=== PATIENT | male | born 2000 | race Caucasian/White ===

== ENCOUNTER 2021-12-31 11:41 | Emergency (ER) | payer MEDICAID, OTHER ==
[~2021-12-31] VITALS: Ht 175.3 cm; Wt 81.6 kg
[2021-12-31 11:42] VITALS: BP 140/77
== END 2021-12-31 13:03 | disposition left against medical advice (07) ==
LOC: M ED 11:41
DX: Z53.21 Procedure and treatment not carried out due to patient leaving prior to being seen by health care provider (principal)

== ENCOUNTER 2023-01-18 05:51 | Emergency (ER) | payer OTHER ==
[~2023-01-18] VITALS: Ht 177.8 cm; Wt 90.7 kg
[2023-01-18] MEDS ORDERED: ONDANSETRON 4MG ORAL DISINTEGRATING TAB PO ONE (06:50)
[2023-01-18] MEDS ORDERED: ONDA4TAB6 PO (06:50)
[2023-01-18 06:55] VITALS: BP 141/73
== END 2023-01-18 06:57 | disposition home or self-care (01) ==
LOC: M ED 05:51
DX: R11.2 Nausea with vomiting, unspecified (principal); Z20.9 Contact with and (suspected) exposure to unspecified communicable disease; Z87.891 Personal history of nicotine dependence

== ENCOUNTER 2023-05-26 17:12 | Emergency (ER) | payer OTHER ==
[~2023-05-26] VITALS: Ht 180.3 cm; Wt 104.5 kg
[~2023-05-26 17:12] MED LIST: ONDA4TAB6 PO
[2023-05-26] MEDS ORDERED: IBUP-1022 PO (19:44)
[2023-05-26] MEDS ORDERED: METH-1164 PO (19:44)
[2023-05-26] MEDS ORDERED: IBUPROFEN 600MG TAB PO ONE (19:45)
[2023-05-26 20:08] VITALS: BP 142/70; TEMP 97.4; O2SAT 98
== END 2023-05-26 20:10 | disposition home or self-care (01) ==
LOC: M ED 17:12
DX: S09.90XA Unspecified injury of head, initial encounter (principal); S13.4XXA Sprain of ligaments of cervical spine, initial encounter; Z79.83 Long term (current) use of bisphosphonates; Z79.899 Other long term (current) drug therapy